=== PATIENT | female | born 1950 | race Hispanic/Latino ===

== ENCOUNTER → 2021-07-03 | Outpatient (CLI) | payer MEDICARE, OTHER | LOC: RAD 12:50 | PROVIDERS: ATTEND Internal Medicine | DX: R07.89 Other chest pain (principal); R10.12 Left upper quadrant pain | CPT/HCPCS: 71046 ==

== ENCOUNTER → 2021-07-06 | Outpatient (CLI) | payer MEDICARE, OTHER | LOC: US 08:03 | PROVIDERS: ATTEND Internal Medicine | DX: R07.89 Other chest pain (principal); R10.12 Left upper quadrant pain | CPT/HCPCS: 76700 ==

== ENCOUNTER → 2021-08-03 | Outpatient (CLI) | payer MEDICARE, OTHER ==
[~2021-08-03] MED LIST: IOPAMIDOL 370 MG/ML 200 ML INFUS..BTL INJ ONE; SODIUM CHLORIDE 0.9% 50ML 50 ML ONE
[2021-08-03 08:21] LABS: CREATININE, SERUM 0.66 mg/dL (0.57-1.11)
== END ==
LOC: CT 07:17
PROVIDERS: ATTEND Internal Medicine
DX: K76.0 Fatty (change of) liver, not elsewhere classified (principal); R10.9 Unspecified abdominal pain
CPT/HCPCS: 36415; 74177; 82565; 84520; Q9967